=== PATIENT | female | born 1995 | race Caucasian/White ===

== ENCOUNTER 2017-01-04 05:24 | Emergency (ER) | payer OTHER ==
--- NOTE | 2017-01-04 08:27 | ED NURSING NOTES ---
Clinical Report - Nurses [facility] [address] [place] [address] 01/04/2017 5:26 Patient: ROXY POST TRIAGE Triage time 05:31. Chief Complaint: ABDOMINAL PAIN and (possible blood in stool). --05:34 Danii Esparza R.N. Acuity: LEVEL 4. Alert. No acute distress. --05:37 Danii Esparza R.N. 05:34 01/04/17. BP: 114/60. HR: 81. RR: 15. O2 saturation: 100%. Temp: 98 F (oral). Pain level now: 0/10. Pain level at maximum: 8/10. --05:37 Danii Esparza R.N. Weight: 70.3 kg stated. Height/Length: 70 inches Per Patient. BMI: 22.2. --05:37 Danii Esparza R.N. Medications None. --05:34 Danii Esparza R.N. Allergies Penicillins. --05:35 Danii Esparza R.N. History Arrived by private vehicle. Historian: patient. Accompanied by spouse. This started yesterday. She has had diarrhea. --05:34 Danii Esparza R.N. Primary physician (Concetta ([facility])). PAST MEDICAL HX: Immunizations: up-to-date. Currently : 9weeks 3 days. SOCIAL HX: Never smoker. No alcohol use or drug use. --05:37 Danii Esparza R.N. PROBLEMS: no known problems. ADDITIONAL SURGERIES: no known surgeries. Interventions ID band on patient. To treatment room. --05:37 Danii Esparza R.N. PHYSICAL ASSESSMENT Ambulatory to room. Patient gowned. GENERAL / NEURO / PSYCH: Alert. Oriented X 4. Appears in no acute distress. RESPIRATORY: Respirations not labored. CVS: Capillary refill less than 2 seconds. SKIN: Skin is warm and dry. --05:38 Danii Esparza R.N. NURSING PROGRESS NOTES Head of bed elevated. Two patient identifiers checked. Call light placed in reach. Side rails up x 1. Bed placed in lowest position. Brakes of bed on. --05:38 Danii Esparza R.N. Patient ready for evaluation- chart flagged. --05:38 Danii Esparza R.N. 05:43 01/04/2017 Site #1 started via IV in the right antecubital space with an 20g angiocath, with aseptic technique and good blood return; one attempt. Blood drawn: rainbow set. Labeled in the presence of the patient and sent to the lab. Saline lock flushed with 10 mL saline (started by Severiano Salcedo RN). --05:53 Danii Esparza R.N. 05:49 01/04/2017 Started bag #1 1000 mL IV Fluids IV NS (Saline); bolus of 500 mL over 30 minute(s) then at 500 mL/hr via site #1 via IV pump. Allergies verified and confirmed 5 rights. IV patency established. IV site checked: no pain, redness, or swelling. IV flushed thoroughly pre- and post-medication administration. --05:54 Danii Esparza R.N. 05:50 01/04/2017 Zofran (Ondansetron HCl) IVP 4 mg given over 30 second(s) via site #1. Allergies verified and confirmed 5 rights. IV patency established. IV site checked: no pain, redness, or swelling. IV flushed thoroughly pre- and post-medication administration. IVP given by RN. --05:54 Danii Esparza R.N. 06:44 01/04/17. BP: 97/48. HR: 77. RR: 15. O2 saturation: 100%. Jean-Meredith pain scale: 2/10. --06:46 Danii Esparza R.N. Warming measures: blanket applied. Patient and family informed about reason for wait and about plan of care. --06:46 Danii Esparza R.N. 07:04 01/04/17. Care transferred and report received (from JOSE Foy). --07:04 Linda Dawson R.N. 07:17 01/04/17. --07:17 Linda Dawson R.N. 07:16 01/04/17. BP: 92/60. HR: 80. RR: 15. O2 saturation: 100%. Pain level now: 0/10. --07:17 Linda Dawson R.N. 07:18 01/04/2017 IV Fluids IV NS Discontinued: bag #1 completed. Total amount infused: 1000 mL. IV patency established. IV site checked: no pain, redness, or swelling. IV flushed thoroughly. --07:18 Linda Dawson R.N. 07:48 US in room. --07:48 Kami Luna R.N. 08:45 01/04/2017 Started 1 gm of Ceftriaxone IVPB in bag #1 50 mL; at 150 mL/hr over 20 minute(s) via site #1 via IV pump. Allergies verified and confirmed 5 rights. IV patency established. IV site checked: no pain, redness, or swelling. IV flushed thoroughly pre- and post-medication administration. --08:45 Linda Dawson R.N. DISPOSITION / DISCHARGE 09:03 01/04/2017 Ceftriaxone IVPB Discontinued: bag #1 completed upon discharge. Total amount infused: 50 mL. IV patency established. IV site checked: no pain, redness, or swelling. IV flushed thoroughly. --09:03 Linda Dawson R.N. 09:06 01/04/17. --09:06 Linda Dawson R.N. 09:02 01/04/17. BP: 101/57. HR: 79. RR: 14. O2 saturation: 100%. Temp: deferred. Pain level now: 0/10. --09:06 Linda Dawson R.N. 09:01/04/2017 Site #1 removed upon discharge. Manual pressure and bandaid applied. --09:11 Linda Dawson R.N. 09:11 01/04/17. No learning barriers present. Discharge instructions provided and reviewed with the patient. Reviewed warnings. Reviewed medication(s). Treatments reviewed. Reviewed referrals. Activity restrictions reviewed. Work note given. Patient and parks and recreation worker verbalized understanding. Written instructions provided in Telugu. The patient was discharged by the physician. She was discharged home and accompanied by parks and recreation worker. She left the Emergency Department ambulatory and via private vehicle. Leather Belt Loop Cutter driving. --09:11 Linda Dawson R.N. Locked/Released at 01/04/2017 9:17 by Linda Dawson R.N.
--- NOTE | 2017-01-04 08:27 | ED CLINICAL REPORT ---
Clinical Report - Physicians/Mid Levels [facility] [address] [place] [address] 01/04/2017 5:26 Patient: ROXY LAYTON Time Seen: 05:29. Arrived- By private vehicle. Historian- patient. Note: . HISTORY OF PRESENT ILLNESS Chief Complaint: ABDOMINAL PAIN. At its maximum, severity described as moderate. When seen in the E.D., severity described as mild. Modifying factors- worsened by movement. Relieved by rest. It is described as "pain". No radiation. It is described as generalized in location. This started yesterday and is still present. It was gradual in onset and has been waxing/waning. The patient has had nausea. No vomiting. Similar symptoms previously: None. Recent medical care: The patient was seen recently by a health care provider. REVIEW OF SYSTEMS No constipation, black stools, hematemesis, difficulty with urination or pain with urination. No urinary frequency, fever, headache, sore throat or chest pain. No difficulty breathing, cough, skin rash or back pain. Currently : 9 weeks Patient is not considering termination. All systems otherwise negative, except as recorded above. PAST HISTORY See nurses notes. No history of gallstones, hypertension or diabetes mellitus. Has not had urinary calculi. Surgeries: No history of previous surgery. SOCIAL HISTORY Never smoker. No alcohol use or drug use. Is a local resident. ADDITIONAL NOTES The nursing notes have been reviewed. PHYSICAL EXAM Vital Signs: 01/04/2017 05:34 BP: 114/60. HR: 81. RR: 15. O2 saturation: 100%. Temp: 98 F. Pain level now: 0/10. Appearance: Alert. Oriented X3. Patient in mild distress. Eyes: Pupils equal, round and reactive to light. Eyes normal inspection. No scleral icterus or pale conjunctivae. ENT: Pharynx normal. No pharyngeal erythema or tonsillar exudate. The mucous membranes are not dry. Neck: Normal inspection. Neck supple. CVS: Normal heart rate and rhythm. Heart sounds normal. Pulses normal. Respiratory: No respiratory distress. Breath sounds normal. Abdomen: Soft. Mild tenderness diffusely and in the upper abdomen. No Layton's sign present. No organomegaly. No mass. No rebound tenderness or guarding. Back: Normal inspection. No CVA tenderness. Skin: Skin warm and dry. Normal skin color. No rash. Normal skin turgor. Extremities: Extremities exhibit normal ROM. No lower extremity edema. Neuro: Oriented X 3. No motor deficit. LABS, X-RAYS, AND EKG Pelvic Sonogram: A single gestation, viable intrauterine is present. Cardiac activity noted. Cardiac activity present (HR 178). Adnexa normal. No free fluid. The study was interpreted contemporaneously by me. The study was discussed with the radiologist (via tech). Laboratory Tests: UA-Culture if indicated: (BRITTON: 01/04/2017 05:37) ( MsgRcvd 01/04/2017 05:56) Final results Test Result Flag Units (Reference) URINE COLOR YELLOW URINE APPEARANCE CLEAR URINE GLUCOSE NEGATIVE (NEGATIVE) URINE BILIRUBIN NEGATIVE (NEGATIVE) URINE KETONE TRACE (NEGATIVE) URINE SPECIFIC GRAVITY >= 1.030 (1.010-1.030) URINE PH 6.0 (5.0-8.0) URINE PROTEIN NEGATIVE (NEGATIVE) URINE UROBILINOGEN 0.2 EU/dL (0.2-1.0) URINE NITRITE NEGATIVE (NEGATIVE) URINE BLOOD 2+ (NEGATIVE) URINE LEUK ESTERASE NEGATIVE (NEGATIVE) URINE RBC 1-3 rbc/hpf (0-1) URINE WBC 0-1 wbc/hpf (0-1) URINE EPITHELIAL CELLS 1-3 EPI/hpf (0-5) URINE BACTERIA MANY (4+) (NONE SEEN) URINE COMMENT CULTURE INDICATED URINE CULTURES ARE SET-UP BASED ON THE FOLLOWING CRITERIA:POSITIVE NITRITEPOSITIVE LEUKOCYTE ESTERASEGREATER THAN 10 WHITE BLOOD CELLSMODERATE (2+) OR GREATER BACTERIA CBC w Diff: (BRITTON: 01/04/2017 05:48) ( MsgRcvd 01/04/2017 05:54) Final results Test Result Flag Units (Reference) WHITE BLOOD COUNT 10.9 K/uL (4.5-11.5) RED BLOOD COUNT 3.92 L M/uL (4.00-5.20) HEMOGLOBIN 12.4 gm/dL (12.0-16.0) HEMATOCRIT 36.2 % (36.0-46.0) MEAN CELL VOLUME 92 fL (80-100) MEAN CORPUSCULAR HGB 32 pg (26-34) MEAN CORPUSCULAR HGB CONC 34 g/dL (31-37) RED CELL DISTRIBUTION WIDTH 12.0 % (11.6-14.8) PLATELET COUNT 270 K/uL (150-400) NEUTROPHIL % 90.8 H % (50-75) LYMPH % 4.9 L % (25-40) MONO % 4.0 % (3-14) EOSINOPHIL % 0.3 % (0-4) BASOPHIL % 0 % (0-2) PT with INR: (BRITTON: 01/04/2017 05:48) ( [facility] 01/04/2017 06:02) Final results Test Result Flag Units (Reference) INR 1.0 (0.8-1.2) Low Intensity Therapy: INR 1.5-2.0 PT range 18.5-23.1Mod.Intensity Therapy: INR 2.0-3.0 PT range 23.1-31.5High Intensity Therapy: INR 2.5-3.5 PT range 27.4-35.5High Intensity Therapy 2: INR 3.0-4.0 PT range 31.5-39.3 Urine Drug Screen: (BRITTON: 01/04/2017 05:37) ( [facility] [place] 06[place]13) Final results Test Result Flag Units (Reference) AMPHETAMINE/METHAMPHETAMINE NEGATIVE (NEGATIVE) BARBITURATE NEGATIVE (NEGATIVE) BENZODIAZEPINE NEGATIVE (NEGATIVE) CANNABINOID NEGATIVE (NEGATIVE) COCAINE NEGATIVE (NEGATIVE) ECSTASY NEGATIVE (NEGATIVE) METHADONE NEGATIVE (NEGATIVE) OPIATE NEGATIVE (NEGATIVE) The urine drug screen is a qualitative screening test fordrug overdose and abuse. All screen results should beconsidered as presumptive.Drugs screened for are as follows:BenzodiazepinesCocaineAmphetamines/MetamphetaminesTHC (Tetrahydrocannabinol)OpiatesBarbituratesEcstasyMethadonePositive results are unconfirmed. For confirmation, notifythe lab for the specimen to be sent to the reference lab.All confirmations must be performed by a differentmethodology.The ingestion of natural herbal and plant productscontaining Ephedra/Ephedra metabolites can produce in urineone or more substances capable of cross reacting withamphetamine/methamphetamine immunoassays. These testsprovide a preliminary result only. A more specificalternative chemical method must be used to obtain aconfirmed analytical result. CMP: (BRITTON: 01/04/2017 05:48) ( MsgRcvd 01/04/2017 06:31) Final results Test Result Flag Units (Reference) GLUCOSE 116 H mg/dL (70-110) BUN 6 L mg/dL (7-18) CREATININE 0.7 mg/dL (0.6-1.3) Estimated GFR >60 mL/min Estimated GFR- >60 mL/min Note: Persistent reduction over 3 months in eGFR<60 mL/min/1.73 m2 defines CKD. Patients with eGFR values>=60 mL/min/1.73 m2 may also have CKD if evidence ofpersistent proteinuria. Additional information may be foundat www.kidney.org. SODIUM 137 mmol/L (136-145) POTASSIUM 3.5 mmol/L (3.5-5.1) CHLORIDE 103 mmol/L (98-107) CARBON DIOXIDE 24 mmol/L (21-32) CALCIUM 8.8 mg/dL (8.5-10.1) TOTAL PROTEIN 7.1 g/dL (6.4-8.2) ALBUMIN 3.7 g/dL (3.3-5.0) BILIRUBIN, TOTAL 0.6 mg/dL (0.0-1.0) ALKALINE PHOSPHATASE 69 U/L (46-116) AST (SGOT) 15 U/L (15-37) ALT (SGPT) 26 U/L (12-78) LIPASE 74 U/L (73-393) AMYLASE 28 U/L (25-115) BETA HCG, QUANTITATIVE 82012 mIU/mL REFERENCE RANGE:Adult Males: <2 mIU/mLNon- Females: <6 mIU/mL Females:Approximate Approximate hCGGestational Age Range (mIU/mL) 0-1 week 0-501-2 weeks 40-3002-3 weeks 100-63344-0 weeks 500-06863-4 months 5,000-200,0002-3 months 10,000-100,0002nd trimester 3,000-50,0003rd trimester 1,000-50,000 . Microbiology: Urine culture ordered. Pulse Oximetry: 01/04/2017 05:34 O2 saturation: 100%. (FIO2 - room air). Interpretation: normal. PROGRESS AND PROCEDURES Course of Care: Normal Saline 1 liter IVPB given. Zofran 4 mg IVP given. Ceftriaxone 1gm IVP given. 08:22 01/04/17. Patient is stable. Physical exam findings are improved. Symptoms much better. Normal appearing IUP. All c/w acute gastroenteritis. Patient/family counseled. Prior records not ordered. Differential Diagnosis: I considered viral gastroenteritis, bacterial enterocolitis, Crohn's disease, ulcerative colitis, celiac sprue, carcinoid tumor, VIP (vasoactive intestinal polypeptide producing) tumor, colon cancer and irritable bowel syndrome as a possible cause of diarrhea in this patient. This is a partial list of diagnoses considered. Above considerations are based on history, physical exam, laboratory data and other information. Differential diagnosis was discussed with patient and patient's spouse. Disposition: Discharged. Condition: stable and improved. CLINICAL IMPRESSION Diarrhea Acute generalized abdominal pain of unknown cause. First trimester . Acute urinary tract infection with cystitis. INSTRUCTIONS Do not work for three days. Drink plenty of fluids. No alcohol. Avoid alcohol and NSAIDS. Examples of NSAIDS include aspirin, ibuprofen (Advil) and naproxen (Aleve). Avoid fatty, fried/greasy, lactose-containing (such as milk, cheese and ice cream), salty and spicy foods. Warnings: Further evaluation is necessary in order to recheck abnormal lab and obtain test results. It is very important to follow up with a physician. GENERAL WARNINGS: Return or contact your physician immediately if your condition worsens or changes unexpectedly, if not improving as expected, or if other problems arise. Prescription Medications: Zofran (orally disintegrating tablets) 4 mg: take 1 orally every 6 hours as needed for nausea and vomiting. Dispense ten (10). No refill. Substitution is permissible. Macrobid 100 mg: Take 1 capsule orally every 12 hours for 7 days. No refills. Substitution is permissible. OTC Medications: Take acetaminophen (Tylenol, Datril, etc.) according to label instructions. Available over the counter. Follow-up: Follow up with your doctor tomorrow. Follow up with an hair worker tomorrow. (Electronically signed by Tito Angela DO 01/04/2017 21:11)
--- NOTE | 2017-01-04 08:27 | ED ORDER SUMMARY ---
..... Patient: ROXY POST OrderSheet [facility] VisitID: [id number] [place] [address] 21y, F Registration Date/Time: 01/04/2017 ORDER SHEET Weight: 70.3 kg (stated) Allergies: Penicillins GENERAL ORDERS: Serum Quantitative Urgent (05:30 01/04/2017 PHutchinson DO) (Ack 5:33 CHategekimana) (5:54 RCollier R.N.) CBC w Diff Urgent (05:01/04/2017 PHutchinson DO) (Ack 5:32 CHategekimana) (5:54 RCollier R.N.) CMP Urgent (05:01/04/2017 PHutchinson DO) (Ack 5:32 CHategekimana) (5:54 RCollier R.N.) UA-Culture if indicated Urgent (05:01/04/2017 PHutchinson DO) (Ack 5:32 CHategekimana) (5:54 RCollier R.N.) Amylase Urgent (05:01/04/2017 PHutchinson DO) (Ack 5:32 CHategekimana) (5:54 RCollier R.N.) Lipase Urgent (05:01/04/2017 PHutchinson DO) (Ack 5:32 CHategekimana) (5:54 RCollier R.N.) PT with INR Urgent (05:01/04/2017 PHutchinson DO) (Ack 5:32 CHategekimana) (5:54 RCollier R.N.) Urine Drug Screen Urgent (05:01/04/2017 PHutchinson DO) (Ack 5:32 CHategekimana) (5:54 RCollier R.N.) NPO (05:01/04/2017 PHutchinson DO) (5:41 RCollier R.N.) US OB 1st Trimester w Transvag (9 weeks ) Urgent (06:10 01/04/2017 PHutchinson DO) (Ack 6:12 IJurca ER Tech1) (8:37 PHutchinson DO) (Cancelled: Other8:37 [facility] DO) US OB 1st Trimester (9 weeks preg per pt) Urgent (08:37 01/04/2017 [facility]) (Ack 8:39 [place]) (8:46 RMarsden R.N.) MEDICATION ORDERS: IV FLUIDS: IV NS : initial bolus 500 mL (1000 mL/hr), then 500 mL/hr for X1 (NOW) (05:30 01/04/2017 [facility]) (Ack 5:38 RCollier R.N.) (5:54 RCollier R.N.) Zofran IV 4 mg (NOW) (05:30 01/04/2017 [facility]) (Ack 5:38 RCollier R.N.) (5:54 RCollier R.N.) Ceftriaxone IV 1 gm/50mL (NOW) (08:23 01/04/2017 [facility]) (Ack 8:30 RMarsden R.N.) (8:45 RMarsden R.N.) ORDER SHEET NOTES: [Electronically signed by Linda Dawson R.N. (09:17 01/04/2017)] [Electronically signed by Tito Angela DO (21:11 01/04/2017)] [Electronically locked/signed by Linda Dawson R.N. (09:17 01/04/2017)]
--- NOTE | 2017-01-04 08:27 | ED NURSING NOTES ---
Clinical Report - Nurses [facility] [address] [place] [address] 01/04/2017 5:26 Patient: ROXY POST TRIAGE Triage time 05:31. Chief Complaint: ABDOMINAL PAIN and (possible blood in stool). --05:34 Danii Esparza R.N. Acuity: LEVEL 4. Alert. No acute distress. --05:37 Danii Esparza R.N. 05:34 01/04/17. BP: 114/60. HR: 81. RR: 15. O2 saturation: 100%. Temp: 98 F (oral). Pain level now: 0/10. Pain level at maximum: 8/10. --05:37 Danii Esparza R.N. Weight: 70.3 kg stated. Height/Length: 70 inches Per Patient. BMI: 22.2. --05:37 Danii Esparza R.N. Medications None. --05:34 Danii Esparza R.N. Allergies Penicillins. --05:35 Danii Esparza R.N. History Arrived by private vehicle. Historian: patient. Accompanied by spouse. This started yesterday. She has had diarrhea. --05:34 Danii Esparza R.N. Primary physician (Concetta ([facility])). PAST MEDICAL HX: Immunizations: up-to-date. Currently : 9weeks 3 days. SOCIAL HX: Never smoker. No alcohol use or drug use. --05:37 Danii Esparza R.N. PROBLEMS: no known problems. ADDITIONAL SURGERIES: no known surgeries. Interventions ID band on patient. To treatment room. --05:37 Danii Esparza R.N. PHYSICAL ASSESSMENT Ambulatory to room. Patient gowned. GENERAL / NEURO / PSYCH: Alert. Oriented X 4. Appears in no acute distress. RESPIRATORY: Respirations not labored. CVS: Capillary refill less than 2 seconds. SKIN: Skin is warm and dry. --05:38 Danii Esparza R.N. NURSING PROGRESS NOTES Head of bed elevated. Two patient identifiers checked. Call light placed in reach. Side rails up x 1. Bed placed in lowest position. Brakes of bed on. --05:38 Danii Esparza R.N. Patient ready for evaluation- chart flagged. --05:38 Danii Esparza R.N. 05:43 01/04/2017 Site #1 started via IV in the right antecubital space with an 20g angiocath, with aseptic technique and good blood return; one attempt. Blood drawn: rainbow set. Labeled in the presence of the patient and sent to the lab. Saline lock flushed with 10 mL saline (started by Severiano Salcedo RN). --05:53 Danii Esparza R.N. 05:49 01/04/2017 Started bag #1 1000 mL IV Fluids IV NS (Saline); bolus of 500 mL over 30 minute(s) then at 500 mL/hr via site #1 via IV pump. Allergies verified and confirmed 5 rights. IV patency established. IV site checked: no pain, redness, or swelling. IV flushed thoroughly pre- and post-medication administration. --05:54 Danii Esparza R.N. 05:50 01/04/2017 Zofran (Ondansetron HCl) IVP 4 mg given over 30 second(s) via site #1. Allergies verified and confirmed 5 rights. IV patency established. IV site checked: no pain, redness, or swelling. IV flushed thoroughly pre- and post-medication administration. IVP given by RN. --05:54 Danii Esparza R.N. 06:44 01/04/17. BP: 97/48. HR: 77. RR: 15. O2 saturation: 100%. Jean-Meredith pain scale: 2/10. --06:46 Danii Esparza R.N. Warming measures: blanket applied. Patient and family informed about reason for wait and about plan of care. --06:46 Danii Esparza R.N. 07:04 01/04/17. Care transferred and report received (from JOSE Foy). --07:04 Linda Dawson R.N. 07:17 01/04/17. --07:17 Linda Dawson R.N. 07:16 01/04/17. BP: 92/60. HR: 80. RR: 15. O2 saturation: 100%. Pain level now: 0/10. --07:17 Linda Dawson R.N. 07:18 01/04/2017 IV Fluids IV NS Discontinued: bag #1 completed. Total amount infused: 1000 mL. IV patency established. IV site checked: no pain, redness, or swelling. IV flushed thoroughly. --07:18 Linda Dawson R.N. 07:48 US in room. --07:48 Kami Luna R.N. 08:45 01/04/2017 Started 1 gm of Ceftriaxone IVPB in bag #1 50 mL; at 150 mL/hr over 20 minute(s) via site #1 via IV pump. Allergies verified and confirmed 5 rights. IV patency established. IV site checked: no pain, redness, or swelling. IV flushed thoroughly pre- and post-medication administration. --08:45 Linda Dawson R.N. DISPOSITION / DISCHARGE 09:03 01/04/2017 Ceftriaxone IVPB Discontinued: bag #1 completed upon discharge. Total amount infused: 50 mL. IV patency established. IV site checked: no pain, redness, or swelling. IV flushed thoroughly. --09:03 Linda Dawson R.N. 09:06 01/04/17. --09:06 Linda Dawson R.N. 09:02 01/04/17. BP: 101/57. HR: 79. RR: 14. O2 saturation: 100%. Temp: deferred. Pain level now: 0/10. --09:06 Linda Dawson R.N. 09:01/04/2017 Site #1 removed upon discharge. Manual pressure and bandaid applied. --09:11 Linda Dawson R.N. 09:11 01/04/17. No learning barriers present. Discharge instructions provided and reviewed with the patient. Reviewed warnings. Reviewed medication(s). Treatments reviewed. Reviewed referrals. Activity restrictions reviewed. Work note given. Patient and applied researcher verbalized understanding. Written instructions provided in Greenlandic. The patient was discharged by the physician. She was discharged home and accompanied by applied researcher. She left the Emergency Department ambulatory and via private vehicle. Finance Insurance Manager driving. --09:11 Linda Dawson R.N. Locked/Released at 01/04/2017 9:17 by Linda Dawson R.N.
--- NOTE | 2017-01-04 08:27 | ED ORDER SUMMARY ---
..... Patient: ROXY POST OrderSheet [facility] VisitID: [id number] [place] [address] 21y, F Registration Date/Time: 01/04/2017 ORDER SHEET Weight: 70.3 kg (stated) Allergies: Penicillins GENERAL ORDERS: Serum Quantitative Urgent (05:30 01/04/2017 PHutchinson DO) (Ack 5:33 CHategekimana) (5:54 RCollier R.N.) CBC w Diff Urgent (05:01/04/2017 PHutchinson DO) (Ack 5:32 CHategekimana) (5:54 RCollier R.N.) CMP Urgent (05:01/04/2017 PHutchinson DO) (Ack 5:32 CHategekimana) (5:54 RCollier R.N.) UA-Culture if indicated Urgent (05:01/04/2017 PHutchinson DO) (Ack 5:32 CHategekimana) (5:54 RCollier R.N.) Amylase Urgent (05:01/04/2017 PHutchinson DO) (Ack 5:32 CHategekimana) (5:54 RCollier R.N.) Lipase Urgent (05:01/04/2017 PHutchinson DO) (Ack 5:32 CHategekimana) (5:54 RCollier R.N.) PT with INR Urgent (05:01/04/2017 PHutchinson DO) (Ack 5:32 CHategekimana) (5:54 RCollier R.N.) Urine Drug Screen Urgent (05:01/04/2017 PHutchinson DO) (Ack 5:32 CHategekimana) (5:54 RCollier R.N.) NPO (05:01/04/2017 PHutchinson DO) (5:41 RCollier R.N.) US OB 1st Trimester w Transvag (9 weeks ) Urgent (06:10 01/04/2017 PHutchinson DO) (Ack 6:12 IJurca ER Tech1) (8:37 PHutchinson DO) (Cancelled: Other8:37 [facility] DO) US OB 1st Trimester (9 weeks preg per pt) Urgent (08:37 01/04/2017 [facility]) (Ack 8:39 [place]) (8:46 RMarsden R.N.) MEDICATION ORDERS: IV FLUIDS: IV NS : initial bolus 500 mL (1000 mL/hr), then 500 mL/hr for X1 (NOW) (05:30 01/04/2017 [facility]) (Ack 5:38 RCollier R.N.) (5:54 RCollier R.N.) Zofran IV 4 mg (NOW) (05:30 01/04/2017 [facility]) (Ack 5:38 RCollier R.N.) (5:54 RCollier R.N.) Ceftriaxone IV 1 gm/50mL (NOW) (08:23 01/04/2017 [facility]) (Ack 8:30 RMarsden R.N.) (8:45 RMarsden R.N.) ORDER SHEET NOTES: [Electronically signed by Linda Dawson R.N. (09:17 01/04/2017)] [Electronically signed by Tito Angela DO (21:11 01/04/2017)] [Electronically locked/signed by Linda Dawson R.N. (09:17 01/04/2017)]
--- NOTE | 2017-01-04 08:27 | ED CLINICAL REPORT ---
Clinical Report - Physicians/Mid Levels [facility] [address] [place] [address] 01/04/2017 5:26 Patient: ROXY LAYTON Time Seen: 05:29. Arrived- By private vehicle. Historian- patient. Note: . HISTORY OF PRESENT ILLNESS Chief Complaint: ABDOMINAL PAIN. At its maximum, severity described as moderate. When seen in the E.D., severity described as mild. Modifying factors- worsened by movement. Relieved by rest. It is described as "pain". No radiation. It is described as generalized in location. This started yesterday and is still present. It was gradual in onset and has been waxing/waning. The patient has had nausea. No vomiting. Similar symptoms previously: None. Recent medical care: The patient was seen recently by a health care provider. REVIEW OF SYSTEMS No constipation, black stools, hematemesis, difficulty with urination or pain with urination. No urinary frequency, fever, headache, sore throat or chest pain. No difficulty breathing, cough, skin rash or back pain. Currently : 9 weeks Patient is not considering termination. All systems otherwise negative, except as recorded above. PAST HISTORY See nurses notes. No history of gallstones, hypertension or diabetes mellitus. Has not had urinary calculi. Surgeries: No history of previous surgery. SOCIAL HISTORY Never smoker. No alcohol use or drug use. Is a local resident. ADDITIONAL NOTES The nursing notes have been reviewed. PHYSICAL EXAM Vital Signs: 01/04/2017 05:34 BP: 114/60. HR: 81. RR: 15. O2 saturation: 100%. Temp: 98 F. Pain level now: 0/10. Appearance: Alert. Oriented X3. Patient in mild distress. Eyes: Pupils equal, round and reactive to light. Eyes normal inspection. No scleral icterus or pale conjunctivae. ENT: Pharynx normal. No pharyngeal erythema or tonsillar exudate. The mucous membranes are not dry. Neck: Normal inspection. Neck supple. CVS: Normal heart rate and rhythm. Heart sounds normal. Pulses normal. Respiratory: No respiratory distress. Breath sounds normal. Abdomen: Soft. Mild tenderness diffusely and in the upper abdomen. No Layton's sign present. No organomegaly. No mass. No rebound tenderness or guarding. Back: Normal inspection. No CVA tenderness. Skin: Skin warm and dry. Normal skin color. No rash. Normal skin turgor. Extremities: Extremities exhibit normal ROM. No lower extremity edema. Neuro: Oriented X 3. No motor deficit. LABS, X-RAYS, AND EKG Pelvic Sonogram: A single gestation, viable intrauterine is present. Cardiac activity noted. Cardiac activity present (HR 178). Adnexa normal. No free fluid. The study was interpreted contemporaneously by me. The study was discussed with the radiologist (via tech). Laboratory Tests: UA-Culture if indicated: (BRITTON: 01/04/2017 05:37) ( MsgRcvd 01/04/2017 05:56) Final results Test Result Flag Units (Reference) URINE COLOR YELLOW URINE APPEARANCE CLEAR URINE GLUCOSE NEGATIVE (NEGATIVE) URINE BILIRUBIN NEGATIVE (NEGATIVE) URINE KETONE TRACE (NEGATIVE) URINE SPECIFIC GRAVITY >= 1.030 (1.010-1.030) URINE PH 6.0 (5.0-8.0) URINE PROTEIN NEGATIVE (NEGATIVE) URINE UROBILINOGEN 0.2 EU/dL (0.2-1.0) URINE NITRITE NEGATIVE (NEGATIVE) URINE BLOOD 2+ (NEGATIVE) URINE LEUK ESTERASE NEGATIVE (NEGATIVE) URINE RBC 1-3 rbc/hpf (0-1) URINE WBC 0-1 wbc/hpf (0-1) URINE EPITHELIAL CELLS 1-3 EPI/hpf (0-5) URINE BACTERIA MANY (4+) (NONE SEEN) URINE COMMENT CULTURE INDICATED URINE CULTURES ARE SET-UP BASED ON THE FOLLOWING CRITERIA:POSITIVE NITRITEPOSITIVE LEUKOCYTE ESTERASEGREATER THAN 10 WHITE BLOOD CELLSMODERATE (2+) OR GREATER BACTERIA CBC w Diff: (BRITTON: 01/04/2017 05:48) ( MsgRcvd 01/04/2017 05:54) Final results Test Result Flag Units (Reference) WHITE BLOOD COUNT 10.9 K/uL (4.5-11.5) RED BLOOD COUNT 3.92 L M/uL (4.00-5.20) HEMOGLOBIN 12.4 gm/dL (12.0-16.0) HEMATOCRIT 36.2 % (36.0-46.0) MEAN CELL VOLUME 92 fL (80-100) MEAN CORPUSCULAR HGB 32 pg (26-34) MEAN CORPUSCULAR HGB CONC 34 g/dL (31-37) RED CELL DISTRIBUTION WIDTH 12.0 % (11.6-14.8) PLATELET COUNT 270 K/uL (150-400) NEUTROPHIL % 90.8 H % (50-75) LYMPH % 4.9 L % (25-40) MONO % 4.0 % (3-14) EOSINOPHIL % 0.3 % (0-4) BASOPHIL % 0 % (0-2) PT with INR: (BRITTON: 01/04/2017 05:48) ( [facility] 01/04/2017 06:02) Final results Test Result Flag Units (Reference) INR 1.0 (0.8-1.2) Low Intensity Therapy: INR 1.5-2.0 PT range 18.5-23.1Mod.Intensity Therapy: INR 2.0-3.0 PT range 23.1-31.5High Intensity Therapy: INR 2.5-3.5 PT range 27.4-35.5High Intensity Therapy 2: INR 3.0-4.0 PT range 31.5-39.3 Urine Drug Screen: (BRITTON: 01/04/2017 05:37) ( [facility] 01/04/2017 06:13) Final results Test Result Flag Units (Reference) AMPHETAMINE/METHAMPHETAMINE NEGATIVE (NEGATIVE) BARBITURATE NEGATIVE (NEGATIVE) BENZODIAZEPINE NEGATIVE (NEGATIVE) CANNABINOID NEGATIVE (NEGATIVE) COCAINE NEGATIVE (NEGATIVE) ECSTASY NEGATIVE (NEGATIVE) METHADONE NEGATIVE (NEGATIVE) OPIATE NEGATIVE (NEGATIVE) The urine drug screen is a qualitative screening test fordrug overdose and abuse. All screen results should beconsidered as presumptive.Drugs screened for are as follows:BenzodiazepinesCocaineAmphetamines/MetamphetaminesTHC (Tetrahydrocannabinol)OpiatesBarbituratesEcstasyMethadonePositive results are unconfirmed. For confirmation, notifythe lab for the specimen to be sent to the reference lab.All confirmations must be performed by a differentmethodology.The ingestion of natural herbal and plant productscontaining Ephedra/Ephedra metabolites can produce in urineone or more substances capable of cross reacting withamphetamine/methamphetamine immunoassays. These testsprovide a preliminary result only. A more specificalternative chemical method must be used to obtain aconfirmed analytical result. CMP: (BRITTON: 01/04/2017 05:48) ( MsgRcvd 01/04/2017 06:31) Final results Test Result Flag Units (Reference) GLUCOSE 116 H mg/dL (70-110) BUN 6 L mg/dL (7-18) CREATININE 0.7 mg/dL (0.6-1.3) Estimated GFR >60 mL/min Estimated GFR- >60 mL/min Note: Persistent reduction over 3 months in eGFR<60 mL/min/1.73 m2 defines CKD. Patients with eGFR values>=60 mL/min/1.73 m2 may also have CKD if evidence ofpersistent proteinuria. Additional information may be foundat www.kidney.org. SODIUM 137 mmol/L (136-145) POTASSIUM 3.5 mmol/L (3.5-5.1) CHLORIDE 103 mmol/L (98-107) CARBON DIOXIDE 24 mmol/L (21-32) CALCIUM 8.8 mg/dL (8.5-10.1) TOTAL PROTEIN 7.1 g/dL (6.4-8.2) ALBUMIN 3.7 g/dL (3.3-5.0) BILIRUBIN, TOTAL 0.6 mg/dL (0.0-1.0) ALKALINE PHOSPHATASE 69 U/L (46-116) AST (SGOT) 15 U/L (15-37) ALT (SGPT) 26 U/L (12-78) LIPASE 74 U/L (73-393) AMYLASE 28 U/L (25-115) BETA HCG, QUANTITATIVE 93941 mIU/mL REFERENCE RANGE:Adult Males: <2 mIU/mLNon- Females: <6 mIU/mL Females:Approximate Approximate hCGGestational Age Range (mIU/mL) 0-1 week 0-501-2 weeks 40-3002-3 weeks 100-02509-0 weeks 500-49966-6 months 5,000-200,0002-3 months 10,000-100,0002nd trimester 3,000-50,0003rd trimester 1,000-50,000 . Microbiology: Urine culture ordered. Pulse Oximetry: 01/04/2017 05:34 O2 saturation: 100%. (FIO2 - room air). Interpretation: normal. PROGRESS AND PROCEDURES Course of Care: Normal Saline 1 liter IVPB given. Zofran 4 mg IVP given. Ceftriaxone 1gm IVP given. 08:22 01/04/17. Patient is stable. Physical exam findings are improved. Symptoms much better. Normal appearing IUP. All c/w acute gastroenteritis. Patient/family counseled. Prior records not ordered. Differential Diagnosis: I considered viral gastroenteritis, bacterial enterocolitis, Crohn's disease, ulcerative colitis, celiac sprue, carcinoid tumor, VIP (vasoactive intestinal polypeptide producing) tumor, colon cancer and irritable bowel syndrome as a possible cause of diarrhea in this patient. This is a partial list of diagnoses considered. Above considerations are based on history, physical exam, laboratory data and other information. Differential diagnosis was discussed with patient and patient's spouse. Disposition: Discharged. Condition: stable and improved. CLINICAL IMPRESSION Diarrhea Acute generalized abdominal pain of unknown cause. First trimester . Acute urinary tract infection with cystitis. INSTRUCTIONS Do not work for three days. Drink plenty of fluids. No alcohol. Avoid alcohol and NSAIDS. Examples of NSAIDS include aspirin, ibuprofen (Advil) and naproxen (Aleve). Avoid fatty, fried/greasy, lactose-containing (such as milk, cheese and ice cream), salty and spicy foods. Warnings: Further evaluation is necessary in order to recheck abnormal lab and obtain test results. It is very important to follow up with a physician. GENERAL WARNINGS: Return or contact your physician immediately if your condition worsens or changes unexpectedly, if not improving as expected, or if other problems arise. Prescription Medications: Zofran (orally disintegrating tablets) 4 mg: take 1 orally every 6 hours as needed for nausea and vomiting. Dispense ten (10). No refill. Substitution is permissible. Macrobid 100 mg: Take 1 capsule orally every 12 hours for 7 days. No refills. Substitution is permissible. OTC Medications: Take acetaminophen (Tylenol, Datril, etc.) according to label instructions. Available over the counter. Follow-up: Follow up with your doctor tomorrow. Follow up with an pit furnace melter tomorrow. (Electronically signed by Tito Angela DO 01/04/2017 21:11)
--- NOTE | 2017-01-04 14:05 | DIAGNOSTIC IMAGING REPORT ---
PROCEDURE: US 1ST TRIMESTER INDICATION: CHECK VIABILITY TECHNIQUE: Valenzuela scale, color, and spectral Doppler transabdominal sonographic images of the first trimester gravid uterus were obtained. COMPARISON: None. FINDINGS: TRANSABDOMINAL SCANS: The gravid uterus is anteverted in position and contains a fundal gestational sac with a moderate decidual response. No perigestational hemorrhage. The cervix is closed. A pole with an average crown-rump length of 30.9 mm is present. This corresponds to a gestation of 10 weeks and 0 days. There is detectable cardiac activity in the fetus in a rate of 178 beats per minute. A yolk sac was visible. The placenta is developing anterior. Neither maternal ovary was well seen. No free pelvic fluid. IMPRESSION: 1. Single living intrauterine with gestational age of 10 weeks 0 days and estimated due date of 08/02/2017 2. Closed cervix and no perigestational hemorrhage. 3. Preliminary report given to the emergency room provider by the technologist.
--- NOTE | 2017-01-04 21:11 | ED MED RECONCILIATION SUMMARY ---
Patient: ROXY POST Medication Reconciliation Report [facility] VisitID: [id number] [address] [place] [address] 21y, F Registration Date/Time: 01/04/2017 Weight: 70.3 kg Height/Length: 70 in. BMI: 22.2 ALLERGIES: Penicillins The patient's Home Medications are listed below: NONE. The source(s) of the original Home Medication information: Not obtained. The following Medications were given to the patient in the Emergency Department: IV NS IV Fluids bolus 500 mL over 30 minute(s), then 500 mL/hr, administered: 01/04/2017 5:49:00 AM Zofran [IVP] IVP 4 mg, administered: 01/04/2017 5:50:00 AM Ceftriaxone [IVPB] IVPB bolus 0, then 1 gm 150 mL/hr, administered: 01/04/2017 8:45:00 AM The following Medications were prescribed to the patient: Take acetaminophen (Tylenol, Datril, etc.) according to label instructions. Available over the counter. -- Tito Angela DO Zofran (orally disintegrating tablets) 4 mg: take 1 orally every 6 hours as needed for nausea and vomiting. Dispense ten (10). No refill. Substitution is permissible. -- Tito Angela DO Macrobid 100 mg: Take 1 capsule orally every 12 hours for 7 days. No refills. Substitution is permissible. -- Tito Angela DO
--- NOTE | 2017-01-04 21:11 | ED DISCHARGE INSTRUCTIONS ---
Patient: ROXY POST General Instructions [facility] VisitID: [id number] [place] [address] 21y, F Registration Date/Time: 01/04/2017 Diarrhea Acute generalized abdominal pain of unknown cause. First trimester . Acute urinary tract infection with cystitis. INSTRUCTIONS Do not work for three days. Drink plenty of fluids. No alcohol. Avoid alcohol and NSAIDS. Examples of NSAIDS include aspirin, ibuprofen (Advil) and naproxen (Aleve). Avoid fatty, fried/greasy, lactose-containing (such as milk, cheese and ice cream), salty and spicy foods. Warnings: Further evaluation is necessary in order to recheck abnormal lab and obtain test results. It is very important to follow up with a physician. GENERAL WARNINGS: Return or contact your physician immediately if your condition worsens or changes unexpectedly, if not improving as expected, or if other problems arise. Prescription Medications: Zofran (orally disintegrating tablets) 4 mg: take 1 orally every 6 hours as needed for nausea and vomiting. Dispense ten (10). No refill. Substitution is permissible. Macrobid 100 mg: Take 1 capsule orally every 12 hours for 7 days. No refills. Substitution is permissible. OTC Medications: Take acetaminophen (Tylenol, Datril, etc.) according to label instructions. Available over the counter. Follow-up: Follow up with your doctor tomorrow. Follow up with an mold swabber tomorrow. ADDITIONAL INFORMATION Diarrhea, Uncertain Cause (Adult, Report Pending) Diarrhea has several possible causes. Commonstomach fluis caused by a virus. Food poisoning, bacteria or parasites are other causes for diarrhea. Only diarrhea caused by bacteria or parasites requires treatment with an antibiotic. Diarrhea from a virus or food poisoning improves with simple home treatment. A stool sample is needed to make the diagnosis of an infection with bacteria or parasites. Up to three stool specimens may be required to diagnose This may take up to two days to get the result. It may be necessary to wait until the stool test is complete to make the diagnosis and select the best antibiotic to prescribe. Home Care: If symptoms are severe, rest at home for the next 24 hours or until you are feeling better. You may use acetaminophen (Tylenol) or ibuprofen (Motrin, Advil) to control fever, unless another medicine was prescribed. [NOTE: If you have chronic liver or kidney disease or ever had a stomach ulcer or GI bleeding, talk with your doctor before using these medicines.] (Aspirin should never be used in anyone under 18 years of age who is ill with a fever. It may cause severe liver damage.) Avoid tobacco, caffeine and alcohol, which may worsen your symptoms. If anti-diarrhea medicine was prescribed, take this only as directed. Sometimes anti-diarrhea medicine can make your condition worse if the cause is an infectious diarrhea. Therefore, anti-diarrhea medicine should not be taken for this condition unless advised by your doctor. During The First 12-24 Hours follow the diet below: BEVERAGES: Sport drinks like Gatorade, soft drinks without caffeine; kimberli kalyn, mineral water (plain or flavored), decaffeinated tea and coffee. SOUPS: Clear broth, consomm and bouillon DESSERTS: Plain gelatin (Jell-O), popsicles and fruit juice bars. During The Next 24 Hours you may add the following to the above: Hot cereal, plain toast, bread, rolls, crackers Plain noodles, rice, mashed potatoes, chicken noodle or rice soup Unsweetened canned fruit (avoid pineapple), bananas Limit fat intake to less than 15 grams per day by avoiding margarine, butter, oils, mayonnaise, sauces, gravies, fried foods, peanut butter, meat, poultry and fish. Limit fiber; avoid raw or cooked vegetables, fresh fruits (except bananas) and bran cereals. Limit caffeine and chocolate. No spices or seasonings except salt. During The Next 24 Hours Gradually resume a normal diet, as you feel better and your symptoms lessen. Follow Up with your doctor or as advised if you are not improving over the next two days. If you were asked to bring a specimen from home, bring the sample on the day of collection. You may call in 2 days (or as directed) for the results. Get Prompt Medical Attention if any of the following occur: Increasing abdominal pain or constant lower right abdominal pain Continued vomiting (unable to keep liquids down) Frequent diarrhea (more than 5 times a day) Blood in vomit or stool (black or red color) Reduced oral intake Dark urine, reduced urine output Weakness, dizziness, fainting Drowsiness, confusion, stiff neck or seizure Fever of 100.4F (38C) oral or higher, not better with fever medication New rash Abdominal Pain, Unknown Cause (Female) The exact cause of your abdominal (stomach) pain is not certain. This does not mean that this is something to worry about, or the right tests were not done. Everyone likes to know the exact cause of the problem, but sometimes with abdominal pain, there is no clear-cut cause, and this could be a good thing. The good news is that your symptoms can be treated, and you will feel better. Your condition does not seem serious now; however, sometimes the signs of a serious problem may take more time to appear. For this reason,it is important for you to watch for any new symptoms, problems,or worsening of your condition. Over the next few days, the abdominal pain may come and go, or be continuous. Other common symptoms can include nausea and vomiting. Sometimes it can be difficult to tell if you feel nauseous, you may just feel bad and not associate that feeling with nausea. Constipation, diarrhea, and a fever may go along with the pain. The pain may continue even if treated correctly over the following days. Depending on how things go, sometimes the cause can become clear and may require further or different treatment. Additional evaluations, medications, or tests may be needed. Home care Your health care provider may prescribe medications for pain, symptoms, or an infection. Follow the health care provider's instructions for taking these medications. General care Rest until your next exam. No strenuous activities. Try to find positions that ease discomfort. A small pillow placed on the abdomen may help relieve pain. Something warm on your abdomen (such as a heating pad) may help, but be careful not to burn yourself. Diet Do not force yourself to eat, especially if having cramps, vomiting, or diarrhea. Water is important so you do not get dehydrated. Soup may also be good. Sports drinks may also help, especially if they are not too acidic. Make sure you don't drink sugary drinks as this can make things worse. Take liquids in small amounts. Do not guzzle them. Caffeine sometimes makes the pain and cramping worse. Avoid dairy products if you have vomiting or diarrhea. Don't eat large amounts at a time. Wait a few minutes between bites. Eat a diet low in fiber (called a low-residue diet). Foods allowed include refined breads, white rice, fruit and vegetable juices without pulp, tender meats. These foods will pass more easily through the intestine. Avoid whole-grain foods, whole fruits and vegetables, meats, seeds and nuts, fried or fatty foods, dairy, alcohol and spicy foods until your symptoms go away. Follow-up care Follow up with your health care provider as instructed, or if your pain does not begin to improve in the next 24 hours. When to seek medical care Seek prompt medical care if any of the following occur: Pain gets worse or moves to the right lower abdomen New or worsening vomiting or diarrhea Swelling of the abdomen Unable to pass stool for more than three days Fever of 100.4F (38C) or higher, or as directed by your healthcare provider. Blood in vomit or bowel movements (dark red or black color) Jaundice (yellow color of eyes and skin) Weakness, dizziness Chest, arm, back, neck or jaw pain Unexpected vaginal bleeding or missed period Call 911 Call emergency services if any of the following occur: Trouble breathing Confusion Fainting or loss of consciousness Rapid heart rate Seizure Bladder Infection,Female (Adult) A bladder infection ("cystitis" or "UTI") usually causes a constant urge to urinate and a burning when passing urine. Urine may be cloudy, smelly or dark. There may be pain in the lower abdomen. A bladder infection occurs when bacteria from the vaginal area enter the bladder opening (urethra). This can occur from sexual intercourse, wearing tight clothing, dehydration and other factors. Home Care: Drink lots of fluids (at least 6-8 glasses a day, unless you must restrict fluids for other medical reasons). This will force the medicine into your urinary system and flush the bacteria out of your body. Avoid sexual intercourse until your symptoms are gone. Avoid caffeine, alcohol and spicy foods. These can irritate the bladder. A bladder infection is treated with antibiotics. You may also be given Pyridium (generic = phenazopyridine) to reduce the burning sensation. This medicine will cause your urine to become a bright orange color. The orange urine may stain clothing. You may wear a pad or panty-liner to protect clothing. Preventing Future Infections: Always wipe from front to back after a bowel movement. Keep the genital area clean and dry. Drink plenty of fluids each day to avoid dehydration. Both sexual partners should wash before intercourse. Urinate right after intercourse to flush out the bladder. Wear cotton underwear and cotton-lined panty hose; avoid tight-fitting pants. If you are on control pills and are having frequent bladder infections, discuss with your doctor. Follow Up: Return to this facility or see your doctor if ALL symptoms are not gone after three days of treatment. Get Prompt Medical Attention if any of the following occur: Fever of 100.4F (38C) or higher, or as directed by your healthcare provider No improvement by the third day of treatment Increasing back or abdominal pain Repeated vomiting; unable to keep medicine down Weakness, dizziness or fainting Vaginal discharge Pain, redness or swelling in the labia (outer vaginal area) Your exam today shows that you are . During , it is normal to develop tender swollen breasts, frequent urination and mild vaginal discharge. During the first three months, nausea is common. Guidelines For A Healthy : To ensure that your baby is born healthy there are certain things that you can do: When you feel tired, you should REST. This is especially true in the later months of . Your body needs more FLUIDS than you may be used to: You should drink 8-10 glasses of juice, milk or water. Eat well-balanced MEALS at regular intervals to supply your body with enough protein. You can expect a total weight gain of about 30 pounds during the . Do not try to diet or lose weight while you are . Because of the extra nutritional needs during , take one VITAMIN daily. Do not take any other MEDICINE during your (prescribed or [id number]) unless your doctor specifically recommends this. Many drugs can have harmful effects on the growing baby. If NAUSEA or VOMITING become a problem, avoid greasy and fried foods. Eat several smaller meals throughout the day rather than three large meals. If you SMOKE, you must stop. The nicotine you breathe in goes right to the baby. Stay away from ALCOHOL, even in moderate amounts. Daily drinking will harm your baby and can cause permanent brain damage. RECREATIONAL DRUGS are harmful, especially cocaine, crack, and heroin. Marijuana should also be avoided. If you were using recreational drugs or prescribed medicine when you found out that you were , talk to your doctor about possible effects on the fetus. Follow Up: Call to arrange for care. This can be provided by your family doctor, an mold swabber ( specialist) or a primary care clinic. Get Prompt Medical Attention if any of the following occur: Vaginal bleeding Moderate or severe abdominal or back pain Excessive vomiting, unable to keep any fluids down for six hours Burning with urination Headache, dizziness or rapid weight gain [place] Diet A bland diet is used for patients with an upset stomach. It consists of foods that are mild and easy to digest. It is better to eat small frequent meals rather than three large meals a day. BEVERAGES OK: Fruit juices, non-caffeinated teas and coffee, non-carbonated singh AVOID: Carbonated beverage, caffeinated tea and coffee, all alcoholic beverages BREAD OK: Refined white, wheat or rye bread, lakeisha or soda crackers, Estela toast, plain rolls, bagels AVOID: Whole-grain bread CEREAL OK: Refined cereals: cooked or ready to eat AVOID: Whole grain cereals and granola, or those containing bran, seeds or nuts DESSERTS OK: Peanut butter and all others except those to "avoid" AVOID: Chocolate, cocoa, coconut, popcorn, nuts, seeds, jam, marmalade FRUITS OK: Canned, cooked, frozen or fresh fruits without seeds or tough skin AVOID: Olives, skin and seeds of fruit MEATS OK: All fresh or preserved meat, fish and fowl AVOID: Any that are prepared with those spices to "avoid" CHEESE & EGGS OK: Eggs, cottage cheese, cream cheese, other cheeses AVOID: All cheeses made with those spices to "avoid" POTATOES & PASTA OK: Potato, rice, macaroni, noodles, spaghetti AVOID: None SOUPS OK: All soups without heavy seasoning AVOID: Soups made with those spices to "avoid" VEGETABLES OK: Canned, cooked, fresh or frozen mildly flavored vegetables without seeds, skins or coarse fiber AVOID: Vegetables prepared with those spices to "avoid"; skin and seeds of vegetables and those with coarse fiber SPICES OK: Salt, lemon and solomon juice, vinegar, all extracts, bethel, cinnamon, thyme, mace, allspice, paprika AVOID: [place] powder, cloves, pepper, seed spices, garlic, gravy pickles, highly seasoned salad dressings Ondansetron Oral disintegrating tablet What is this medicine? ONDANSETRON (on LIZETT se gina) is used to treat nausea and vomiting caused by chemotherapy. It is also used to prevent or treat nausea and vomiting after surgery. How should I use this medicine? These tablets are made to dissolve in the mouth. Do not try to push the tablet through the foil backing. With dry hands, peel away the foil backing and gently remove the tablet. Place the tablet in the mouth and allow it to dissolve, then swallow. While you may take these tablets with water, it is not necessary to do so. Talk to your steel die engraver regarding the use of this medicine in children. Special care may be needed. What side effects may I notice from receiving this medicine? Side effects that you should report to your doctor or health post acute care nurse as soon as possible: allergic reactions like skin rash, itching or hives, swelling of the face, lips, or tongue breathing problems dizziness fast or irregular heartbeat feeling faint or lightheaded, falls fever and chills swelling of the hands and feet tightness in the chest Side effects that usually do not require medical attention (report to your doctor or health post acute care nurse if they continue or are bothersome): constipation or diarrhea headache What may interact with this medicine? Do not take this medicine with any of the following medications: -apomorphine -cisapride -dofetilide -dronedarone -pimozide -thioridazine -ziprasidone This medicine may also interact with the following medications: -carbamazepine -phenytoin -rifampicin -tramadol -other medicines that prolong the QT interval (cause an abnormal heart rhythm) What if I miss a dose? If you miss a dose, take it as soon as you can. If it is almost time for your next dose, take only that dose. Do not take double or extra doses. Where should I keep my medicine? Keep out of the reach of children. Store between 2 and 30 degrees C (36 and 86 degrees F). Throw away any unused medicine after the expiration date. What should I tell my health care provider before I take this medicine? They need to know if you have any of these conditions: heart disease history of irregular heartbeat liver disease low levels of magnesium or potassium in the blood an unusual or allergic reaction to ondansetron, granisetron, other medicines, foods, dyes, or preservatives or trying to get breast-feeding What should I watch for while using this medicine? Check with your doctor or health post acute care nurse as soon as you can if you have any sign of an allergic reaction. Nitrofurantoin, Nitrofurantoin, Macrocrystalline Oral capsule What is this medicine? NITROFURANTOIN (lucía JOHN toyn) is an antibiotic. It is used to treat urinary tract infections. How should I use this medicine? Take this medicine by mouth with a glass of water. Follow the directions on the prescription label. Take this medicine with food or milk. Take your doses at regular intervals. Do not take your medicine more often than directed. Do not stop taking except on your doctor's advice. Talk to your steel die engraver regarding the use of this medicine in children. While this drug may be prescribed for selected conditions, precautions do apply. What side effects may I notice from receiving this medicine? Side effects that you should report to your doctor or health post acute care nurse as soon as possible: allergic reactions like skin rash or hives, swelling of the face, lips, or tongue chest pain cough difficulty breathing dizziness, drowsiness fever or infection joint aches or pains pale or blue-tinted skin redness, blistering, peeling or loosening of the skin, including inside the mouth tingling, burning, pain, or numbness in hands or feet unusual bleeding or bruising unusually weak or tired yellowing of eyes or skin Side effects that usually do not require medical attention (report to your doctor or health post acute care nurse if they continue or are bothersome): dark urine diarrhea headache loss of appetite nausea or vomiting temporary hair loss What may interact with this medicine? antacids containing magnesium trisilicate probenecid quinolone antibiotics like ciprofloxacin, lomefloxacin, norfloxacin and ofloxacin sulfinpyrazone What if I miss a dose? If you miss a dose, take it as soon as you can. If it is almost time for your next dose, take only that dose. Do not take double or extra doses. Where should I keep my medicine? Keep out of the reach of children. Store at room temperature between 15 and 30 degrees C (59 and 86 degrees F). Protect from light. Throw away any unused medicine after the expiration date. What should I tell my health care provider before I take this medicine? They need to know if you have any of these conditions: anemia diabetes [id number] dehydrogenase deficiency kidney disease liver disease lung disease other chronic illness an unusual or allergic reaction to nitrofurantoin, other antibiotics, other medicines, foods, dyes or preservatives or trying to get breast-feeding What should I watch for while using this medicine? Tell your doctor or health post acute care nurse if your symptoms do not improve or if you get new symptoms. Drink several glasses of water a day. If you are taking this medicine for a long time, visit your doctor for regular checks on your progress. If you are diabetic, you may get a false positive result for sugar in your urine with certain brands of urine tests. Check with your doctor. You have been given the following additional information: Diarrhea, Unk Cause (Adult) Report Pendg Abdominal Pain, Unknown Cause, (Female) Bladder Infection, Female (Adult) , New Dx Diet, [place] (Adult) Ondansetron Oral disintegrating tablet Nitrofurantoin, Nitrofurantoin, Macrocrystalline Oral capsule Do not work for three days. (Electronically signed by Tito Angela DO 01/04/2017 21:11)
--- NOTE | 2017-01-04 21:11 | ED MED RECONCILIATION SUMMARY ---
Patient: ROXY POST Medication Reconciliation Report [facility] VisitID: [id number] [address] [place] [address] 21y, F Registration Date/Time: 01/04/2017 Weight: 70.3 kg Height/Length: 70 in. BMI: 22.2 ALLERGIES: Penicillins The patient's Home Medications are listed below: NONE. The source(s) of the original Home Medication information: Not obtained. The following Medications were given to the patient in the Emergency Department: IV NS IV Fluids bolus 500 mL over 30 minute(s), then 500 mL/hr, administered: 01/04/2017 5:49:00 AM Zofran [IVP] IVP 4 mg, administered: 01/04/2017 5:50:00 AM Ceftriaxone [IVPB] IVPB bolus 0, then 1 gm 150 mL/hr, administered: 01/04/2017 8:45:00 AM The following Medications were prescribed to the patient: Take acetaminophen (Tylenol, Datril, etc.) according to label instructions. Available over the counter. -- Tito Angela DO Zofran (orally disintegrating tablets) 4 mg: take 1 orally every 6 hours as needed for nausea and vomiting. Dispense ten (10). No refill. Substitution is permissible. -- Tito Angela DO Macrobid 100 mg: Take 1 capsule orally every 12 hours for 7 days. No refills. Substitution is permissible. -- Tito Angela DO
--- NOTE | 2017-01-04 21:11 | ED MAR SUMMARY ---
..... Medication Administration Record [facility] [address] [place] [address] Patient: ROXY POST Visit ID: [id number] 21y, F Weight: 70.3 kg Height/Length: 70 in BMI: 22.2 ALLERGIES: Penicillins Start 05:49 01/04/2017 Danii Esparza R.N., Stop 07:18 01/04/2017 Linda Dawson R.N. Medication Administered: IV NS (SALINE), Dose: IV Fluids, Rate: 500 mL/hr, Bolus: 500 mL over 30 minute(s), Dispensed: 1000 mL bag, Site: #1 right AC. Medication Ordered: IV NS : initial bolus 500 mL (1000 mL/hr), then 500 mL/hr for X1 (NOW). Given 05:50 01/04/2017 Danii Esparza R.N. Medication Administered: ZOFRAN [IVP] (ONDANSETRON HCL), Dose: 4 mg IVP over 30 second(s), Site: #1 right AC. Medication Ordered: Zofran IV 4 mg (NOW). Start 08:45 01/04/2017 Linda Dawson R.N., Stop 09:03 01/04/2017 Linda Dawson R.N. Medication Administered: CEFTRIAXONE [IVPB], Dose: 1 gm IVPB over 20 minute(s), Rate: 150 mL/hr, Dispensed: 50 mL bag, Site: #1 right AC. Medication Ordered: Ceftriaxone IV 1 gm/50mL (NOW).
--- NOTE | 2017-01-04 21:11 | ED MAR SUMMARY ---
..... Medication Administration Record [facility] [address] [place] [address] Patient: ROXY POST Visit ID: [id number] 21y, F Weight: 70.3 kg Height/Length: 70 in BMI: 22.2 ALLERGIES: Penicillins Start 05:49 01/04/2017 Danii Esparza R.N., Stop 07:18 01/04/2017 Linda Dawson R.N. Medication Administered: IV NS (SALINE), Dose: IV Fluids, Rate: 500 mL/hr, Bolus: 500 mL over 30 minute(s), Dispensed: 1000 mL bag, Site: #1 right AC. Medication Ordered: IV NS : initial bolus 500 mL (1000 mL/hr), then 500 mL/hr for X1 (NOW). Given 05:50 01/04/2017 Danii Esparza R.N. Medication Administered: ZOFRAN [IVP] (ONDANSETRON HCL), Dose: 4 mg IVP over 30 second(s), Site: #1 right AC. Medication Ordered: Zofran IV 4 mg (NOW). Start 08:45 01/04/2017 Linda Dawson R.N., Stop 09:03 01/04/2017 Linda Dawson R.N. Medication Administered: CEFTRIAXONE [IVPB], Dose: 1 gm IVPB over 20 minute(s), Rate: 150 mL/hr, Dispensed: 50 mL bag, Site: #1 right AC. Medication Ordered: Ceftriaxone IV 1 gm/50mL (NOW).
== END 2017-01-04 09:11 | disposition home or self-care (01) ==
LOC: ED SRH 05:24
DX: O23.11 Infections of bladder in pregnancy, first trimester (principal); R10.84 Generalized abdominal pain; Z3A.09 9 weeks gestation of pregnancy; Z88.0 Allergy status to penicillin
CPT/HCPCS: 90004; 90100; 90197; 90469; 92235; 92530; 92760; 92761; 92762; 92763; 92764; 92765; 92766; 92767; 94060; 95059